=== PATIENT | female | born 2000 | race Caucasian/White ===

== ENCOUNTER 2019-04-27 20:58 | Emergency (ER) | payer MEDICAID, OTHER ==
[~2019-04-27] VITALS: Ht 157.5 cm; Wt 59.0 kg
[2019-04-27 21:05] VITALS: BP 140/84
--- NOTE | 2019-04-27 21:08 | NUR ---
TO LOBBY A/W BED AMBULATORY
--- NOTE | 2019-04-27 22:00 | NUR ---
PATIENT AMB TO BED 11
--- NOTE | 2019-04-27 22:14 | NUR ---
18 YO FEMALE CO VAG BLEEDING FOR 2D. PT IS CURRENTLY 10 WKS . NO BLEEDING OR DISCHARGE AT THIS TIME. PT HAS 7/10 PAIN IN HER RIGHT LOWER ABD. BS ACTIVE IN ALL 4 QUADS. PT DENIES ANY N/V/D. PT IS TAKING PRENATALS BUT NO THER RX MEDS AT THIS TIME. NO PAST MED HX. NO KNOWN ALLERGIES. PT IS CURRENTLY LAYING IN BED WITH ONE SIDE RAIL UP FOR SAFETY.
[2019-04-27 22:38] LABS: APPEARANCE,URINE SL CLOUDY (CLEAR); BILIRUBIN,URINE NEGATIVE (NEGATIVE); BLOOD, URINE NEGATIVE (NEGATIVE); COLOR,URINE YELLOW (YELLOW); LEUKOCYTE ESTERASE ,URINE NEGATIVE (NEGATIVE); NITRITE, URINE NEGATIVE (NEGATIVE); PH,URINE 6.5 (5.0-9.0); UGLUCOSE NEGATIVE (NEGATIVE)
[2019-04-27 22:38] LABS: BASOPHILS # (AUTO) 0.1 K/uL (0.00-0.22); BASOPHILS % (AUTO) 0.7 % (0.0-2.0); EOSINOPHILS # (AUTO) 0.1 K/uL (0-0.4); EOSINOPHILS % (AUTO) 0.7 % (0.0-4.0); HEMATOCRIT 39.2 % (36-48); HEMOGLOBIN 13.4 g/dL (12.0-16.0); LYMPHOCYTES # (AUTO) 2.3 K/uL (2.5-16.5); LYMPHOCYTES % (AUTO) 18.8 % (20.5-51.1); MEAN CORPUSCULAR HEMOGLOBIN 29 pg (27-31); MEAN CORPUSCULAR HGB CONC 34 g/dL (33-37); MEAN CORPUSCULAR VOLUME 83.7 fL (80-94); MONOCYTES # (AUTO) 0.6 K/uL (0.8-1.0); MONOCYTES % (AUTO) 4.5 % (1.7-9.3); NEUTROPHILS # (AUTO) 9.2 K/uL (1.8-7.7); NEUTROPHILS % (AUTO) 75.3 % (42.2-75.2); PLATELET COUNT (AUTO) 253 K/uL (140-450); RED BLOOD CELL COUNT(AUTO) 4.68 MIL/uL (4.20-5.40); RED CELL DISTRIBUTION WIDTH 16.8 % (11.6-13.7); WHITE BLOOD COUNT (AUTO) 12.2 K/uL (4.5-11.0)
[2019-04-27 22:59] LABS: ALBUMIN 3.7 g/dL (3.4-5.0); ANION GAP 13.5 (8-16); CARBON DIOXIDE 24.2 mmol/L (21-32); CREATININE 0.6 mg/dL (0.6-1.3); POTASSIUM 3.7 mmol/L (3.5-5.1); TOTAL BILIRUBIN 0.1 mg/dL (0.0-1.0)
[2019-04-28 00:16] VITALS: BP 140/84
--- NOTE | 2019-04-28 00:17 | NUR ---
EMILY DISCHARED PT. ALL PT INSTRUCTIONS AND TEACHING PROVIDED BY DR RANDALL
== END 2019-04-27 23:17 | disposition home or self-care (01) ==
LOC: MED 20:58
DX: R10.30 Lower abdominal pain, unspecified (principal); O20.8 Other hemorrhage in early pregnancy; Z3A.10 10 weeks gestation of pregnancy
CPT/HCPCS: 36415; 76801; 80053; 81003; 81025; 84702; 85025; 86900; 86901; 99284; Q0092

== ENCOUNTER 2021-11-28 09:22 | Emergency (ER) | payer OTHER ==
[~2021-11-28] VITALS: Ht 157.5 cm; Wt 65.8 kg
[2021-11-28 09:27] VITALS: BP 115/75
--- NOTE | 2021-11-28 09:34 | NUR ---
PT AMBULATED TO BATHROOM, OFFERED WC STATED THAT SINCE BATHROOM IS CLOSE SHE'LL JUST WALK
--- NOTE | 2021-11-28 09:37 | NUR ---
Patient was wheelchair assisted to bed 6.
--- NOTE | 2021-11-28 09:37 | NUR ---
PT WC ASSISTED TO BED 6
--- NOTE | 2021-11-28 09:40 | NUR ---
X-Ray at bedside.
[2021-11-28] MEDS ORDERED: IBUP-1842 PO (10:38)
[2021-11-28] MEDS ORDERED: IBUPROFEN 600 MG TAB PO ONE (10:40)
--- NOTE | 2021-11-28 10:45 | NUR ---
per er bhavya wrap x 1 applied to r ankle. crutches also provided. pt returned safe demonstration.
--- NOTE | 2021-11-28 10:49 | NUR ---
Patient discharged with v/s stable. Written and verbal after care instructions given Patient alert, oriented and verbalized understanding of instructions. Ambulatory with steady gait. All questions addressed prior to discharge. ID band removed. Patient advised to follow up with PMD. Rx of Ibuprofen given. Opportunity to ask questions provided and answered.
--- NOTE | 2021-11-28 10:50 | NUR ---
The patient's care was reviewed and supervised by Letitia Connelly RN.
== END 2021-11-28 10:49 | disposition home or self-care (01) ==
LOC: MED 09:22
DX: S93.401A Sprain of unspecified ligament of right ankle, initial encounter (principal); X58.XXXA Exposure to other specified factors, initial encounter; Y93.89 Activity, other specified; Y92.89 Other specified places as the place of occurrence of the external cause; Y99.8 Other external cause status
CPT/HCPCS: 73610; 81002; 81025; 99283; Q0092